=== PATIENT | female | born 1960 | race Caucasian/White ===

== ENCOUNTER 2018-12-11 07:32 | Day surgery (SDC) | payer BC ==
[2018-12-11] MEDS ORDERED: LIDOCAINE 2% MDV (20MG/ML) 20ML VIAL IV ONE (07:33)
[2018-12-11] MEDS ORDERED: PROPOFOL 10 MG/ML VIAL IV ONE (07:33)
--- NOTE | 2018-12-12 07:50 | Operative Note ---
OPERATION: COLONOSCOPY. PREOPERATIVE DIAGNOSIS: Personal history of colon polyps. POSTOPERATIVE DIAGNOSIS: Severe sigmoid diverticulosis. PREPARATION QUALITY: Good. ESTIMATED BLOOD LOSS: None. SPECIMENS: None. COMPLICATIONS: None apparent. PROCEDURE: After informed consent was obtained from the patient, she was placed in the left lateral decubitus position in the endoscopy suite, sedated and monitored by the department of anesthesia. Digital rectal examination was unremarkable. A well-lubricated [id number] colonoscope was inserted into the rectum and advanced to the cecum. Preparation quality was good. The cecum and cecal bulb were entered several times. The ileocecal valve was unremarkable. The ascending colon, transverse colon, and descending colon were unremarkable. No polyps, mass lesions, or inflammation was seen. The sigmoid colon demonstrated severe diverticular changes but no polyps or obvious inflammation was noted. The rectum was unremarkable in forward and J-turn views. The endoscope was straightened, the rectal ampulla deflated, and the endoscope was removed. RECOMMENDATIONS: I would suggest the patient follow a high-fiber diet and use a fiber supplement such as Benefiber or Citrucel. She should undergo repeat exam in 5 years based on prior polyp history. As always, thank you for allowing me to participate in the healthcare of your patients. CC: Rosanne Taylor MD [facility]
== END 2018-12-11 09:09 | disposition home or self-care (01) ==
LOC: HOP 07:32
PROVIDERS: ATTEND Internal Medicine Gastroenterology
DX: Z12.11 Encounter for screening for malignant neoplasm of colon (principal); K57.30 Diverticulosis of large intestine without perforation or abscess without bleeding; Z86.010 Personal history of colon polyps; I10 Essential (primary) hypertension; E78.00 Pure hypercholesterolemia, unspecified
CPT/HCPCS: 00812; G0105